=== PATIENT | female | born 1985 | race Caucasian/White ===

== ENCOUNTER 2016-09-23 11:11 | Emergency (ER) | payer BC ==
[2016-09-23 11:26] VITALS: BP 140/85; PULSE 69; RESP 16; TEMP 98.7
[2016-09-23 11:48] LABS: Appearance,Urine Clear (Clear); Bacteria,Urine Rare /hpf; Bilirubin,Urine Negative (Negative); Glucose,Urine (UA) Negative (Negative); Ketones,Urine Negative (Negative); Leukocyte Esterase,Urine Negative (Negative); Nitrite,Urine Negative (Negative); PH, Urine 7.5 (5.0-8.0); Particle Count 1653; Protein,Urine Negative (Negative); RBC,Urine 1 /hpf (0-5); Specific Gravity,Urine 1.004 (1.001-1.035); Squamous Epithelial Cell,Urine 2 /hpf (0-4); UA Billing (MACRO vs. MICRO) MICRO; Urobilinogen,Urine <2.0 mg/dL (<2.0); WBC,Urine 2 /hpf (0-5)
--- NOTE | 2016-09-23 12:04 | ED ---
General Adult HPI - General Chief complaint: Vaginal Bleeding Stated complaint: POSS MISCARRAGE, APX 3 WEEKS Time Seen by Provider: 09/23/16 11:25 Source: patient, RN notes reviewed, old records reviewed Mode of arrival: ambulatory Limitations: no limitations - History of Present Illness Initial comments: This is a 31-year-old female ER for evaluation of vaginal bleeding. Patient states she is currently active, sexually active and trying to get . She is a and is unsure at this time if she is or not. Patient states she had a 11 day early., She is not lightheaded dizzy or weak. Bleeding Is not copious. Also complaining of occasional diffuse abdominal, extremity cramping. She also has extended increasing interpregnancy cramping. Patient denies other complaints, she called her OB control who told her to come the emergency today for evaluation. Patient denies abdominal pain. No dysuria. No nausea vomiting - Related Data Home Medications Medication Instructions Recorded Confirmed Vit No.124/Iron/FA 1 tab PO DAILY 01/16/15 02/17/15 [ Vitamin Tablet] Previous Rx's Medication Instructions Recorded Acetaminophen-Codeine 300-30mg 1 - 2 tab PO Q4H PRN #30 tablet 03/18/14 [Tylenol w/codeine #3] Allergies Allergy/AdvReac Type Severity Reaction Status Date / Time No Known Allergies Allergy Verified 09/23/16 11:26 Review of Systems ROS Statement: Those systems with pertinent positive or pertinent negative responses have been documented in the HPI. ROS Other: All systems not noted in ROS Statement are negative. Past Medical History Past Medical History: No Reported History Additional Past Medical History / Comment(s): MISSED AB- DENIES ANY BLEEDING OR SPOTTING History of Any Multi-Drug Resistant Organisms: None Reported Past Surgical History: No Surgical Hx Reported Additional Past Surgical History / Comment(s): RIGHT SHOULDER, RIGHT KNEE ARTHROSCOPY Past Anesthesia/Blood Transfusion Reactions: Motion Sickness, Postoperative Nausea & Vomiting (PONV) Past Psychological History: No Psychological Hx Reported Smoking Status: Never smoker Past Alcohol Use History: Occasional Past Drug Use History: None Reported General Exam Limitations: no limitations General appearance: alert, in no apparent distress Head exam: Present: atraumatic, normocephalic, normal inspection Eye exam: Present: normal appearance, PERRL, EOMI. Absent: scleral icterus, conjunctival injection, periorbital swelling ENT exam: Present: normal exam, mucous membranes moist Neck exam: Present: normal inspection. Absent: tenderness, meningismus, lymphadenopathy Respiratory exam: Present: normal lung sounds bilaterally. Absent: respiratory distress, wheezes, rales, rhonchi, stridor Cardiovascular Exam: Present: regular rate, normal rhythm, normal heart sounds. Absent: systolic murmur, diastolic murmur, rubs, gallop, clicks GI/Abdominal exam: Present: soft, normal bowel sounds. Absent: distended, tenderness, guarding, rebound, rigid Extremities exam: Present: normal inspection, full ROM, normal capillary refill. Absent: tenderness, pedal edema, joint swelling, calf tenderness Back exam: Present: normal inspection Neurological exam: Present: alert, oriented X3, CN II-XII intact Psychiatric exam: Present: normal affect, normal mood Skin exam: Present: warm, dry, intact, normal color. Absent: rash Course Vital Signs 09/23/16 11:19 Temperature 98.7 F Pulse Rate 69 Respiratory 16 Rate Blood Pressure 140/85 O2 Sat by Pulse 100 Oximetry Medical Decision Making - Medical Decision Making 31 female here for evaluation of possible because of cramping. Laboratory is normal x-rays are negative urine is negative no infection, negative . - Lab Data Lab Results 09/23/16 09/23/16 Range/Units 11:30 11:30 Urine Color Light Yellow Urine Appearance Clear (Clear) Urine pH 7.5 (5.0-8.0) Ur Specific [place]e 1.004 (1.001-1.035) Urine Protein Negative (Negative) Urine Glucose (UA) Negative (Negative) Urine Ketones Negative (Negative) Urine Blood Moderate H (Negative) Urine Nitrite Negative (Negative) Urine Bilirubin Negative (Negative) Urine Urobilinogen <2.0 (<2.0) mg/dL Ur Leukocyte Esterase Negative (Negative) Urine RBC 1 (0-5) /hpf Urine WBC 2 (0-5) /hpf Ur Squamous Epith Cells 2 (0-4) /hpf Urine Bacteria Rare H (None) /hpf Urine HCG, Qual Not Detected (Not Detectd) Disposition Clinical Impression: Dysfunctional uterine bleeding Disposition: HOME SELF-CARE Condition: Good Instructions: Dysfunctional Uterine Bleeding (ED) Referrals: Theodore Love MD [Primary Care Provider] - 1-2 days
[2016-09-23 12:31] LABS: Basophils # (A) 0.1 k/uL (0-0.2); Basophils % (A) 1 %; CH 31.8; CHCM 33.3; Eosinophils # (A) 0.1 k/uL (0-0.7); Eosinophils % (A) 3 %; HCT 42.1 % (34.0-46.0); HDW 2.26; HGB 13.9 gm/dL (11.4-16.0); Luc # (Auto) 0.09; Luc % (Auto) 2; Lymphocytes # (A) 1.7 k/uL (1.0-4.8); Lymphocytes % (A) 32 %; MCH 31.7 pg (25.0-35.0); MCV 95.9 fL (80.0-100.0); Mean Platelet Volume 7.6; Monocytes # (A) 0.2 k/uL (0-1.0); Monocytes % (A) 4 %; Neutrophils # (A) 3.2 k/uL (1.3-7.7); Neutrophils % (A) 59 %; RBC 4.39 m/uL (3.80-5.40); RDW 12.8 % (11.5-15.5); WBC 5.3 k/uL (3.8-10.6)
[2016-09-23 12:40] LABS: HCG,Qualitative Serum Not Detected
[2016-09-23 12:47] LABS: ALT 34 U/L (9-52); AST 24 U/L (14-36); Alkaline Phosphatase 55 U/L (38-126); Anion Gap 9 mmol/L; Blood Urea Nitrogen 15 mg/dL (7-17); Carbon Dioxide 24 mmol/L (22-30); Chloride 107 mmol/L (98-107); Glucose 94 mg/dL (74-99); Magnesium 1.8 mg/dL (1.6-2.3); Non-African American GFR(MDRD) >60 (>60 ml/min/1.73 sqM); Phosphorous 3.4 mg/dL (2.5-4.5); Potassium 4.4 mmol/L (3.5-5.1); Sodium 140 mmol/L (137-145); Total Bilirubin 0.8 mg/dL (0.2-1.3); Total Protein 7.4 g/dL (6.3-8.2)
== END 2016-09-23 13:04 | disposition home or self-care (01) ==
LOC: EC 11:11
DX: N93.8 Other specified abnormal uterine and vaginal bleeding (principal); R10.84 Generalized abdominal pain; Z32.02 Encounter for pregnancy test, result negative
CPT/HCPCS: 36415; 80053; 81001; 81025; 83735; 84100; 84703; 85025; 86900; 86901; 87086; 99284

== ENCOUNTER → 2019-01-04 | Outpatient (CLI) | payer BC ==
--- NOTE | 2019-01-04 22:40 | MR ---
EXAMINATION TYPE: MR knee RT wo con DATE OF EXAM: 01/04/2019 COMPARISON: NONE HISTORY: Internal derangement of right knee, volleyball injury 4-5 weeks ago with pain. TECHNIQUE: Multiplanar, multisequence images of the knee is performed without IV contrast. FINDINGS: MEDIAL MENISCUS: Anterior and posterior horns are intact without tear. LATERAL MENISCUS: Anterior and posterior horns are intact without tear. CRUCIATE LIGAMENTS: The anterior and posterior cruciate ligaments are intact and unremarkable. COLLATERAL LIGAMENTS: The medial collateral ligament and lateral collateral ligament complex are inta ct and unremarkable. EXTENSOR MECHANISM: Visualized quadriceps and patellar tendons are intact. EFFUSION: There is small to moderate size suprapatellar joint effusion. POPLITEAL CYST: No popliteal/randhawa cyst. TRICOMPARTMENT SPACES: Mild to moderate narrowing patellofemoral compartment. No significant spurring . CARTILAGE: Some chondromalacia patella with thinning of articular cartilage along the posterior molina lar pole. BONE MARROW SIGNAL: Area of heterogeneous increased T2 signal involving the anterior central aspect o f the distal femoral epiphysis coronal image 11 and axial image 15. OTHER: No additional significant abnormality is appreciated. IMPRESSION: 1. No meniscal or ligamentous tear is seen. 2. Focal osseous contusion and/or bone marrow edema involving the anterior central aspect of the dist al femoral meta-epiphysis 3. Qaaen-sm-ebhjetyp sized suprapatellar joint effusion.
== END | disposition home or self-care (01) ==
LOC: RADMRIMAIN 16:58
PROVIDERS: ATTEND Family Medicine
DX: M25.461 Effusion, right knee (principal)

== ENCOUNTER 2019-02-18 10:13 | Emergency (ER) | payer BC ==
[2019-02-18 10:18] VITALS: RESP 16; TEMP 98
--- NOTE | 2019-02-18 11:16 | ED ---
Chest Pain HPI - General Chief Complaint: Chest Pain Stated Complaint: chest pain Time Seen by Provider: 02/18/19 10:25 Source: patient, RN notes reviewed Mode of arrival: wheelchair Limitations: no limitations - History of Present Illness Initial Comments: This is a 33-year-old female with a benign past medical history and no family history of heart or lung disease at early age who states her last one half to 2 weeks she's been having intermittent episodes of upper and mid sternal chest discomfort described as sometimes burning sometimes tight. He denies any fevers chills nausea vomiting but she has had some sweats. She recently has been diagnosed with thyroid disorder started on thyroid medication. She was noted recently have elevated blood pressure racing heart. He has no history again of any heart or lung disease no reflux she is a teacher in a girls tennis coach. She is very athletic and does work out a lot. She points to the midsternal area as the area pain right now she states is about 1/10 severity. Sometimes it goes up to 3-4. No other modifying factors she currently is on her menstrual period and denies any chance of . MD Complaint: chest pain - Related Data Home Medications Medication Instructions Recorded Confirmed Pnv,Calcium 72/Iron/Folic Acid 1 tab PO HS 09/23/16 02/18/19 [Pnv Plus Multivit Tab] Levothyroxine Sodium [Synthroid] 50 mcg PO DAILY 02/18/19 02/18/19 Allergies Allergy/AdvReac Type Severity Reaction Status Date / Time No Known Allergies Allergy Verified 02/18/19 10:37 Review of Systems ROS Statement: Those systems with pertinent positive or pertinent negative responses have been documented in the HPI. ROS Other: All systems not noted in ROS Statement are negative. EKG Findings - EKG Results: EKG: interpreted by ERMD, sinus rhythm, normal axis, normal QRS, normal ST/T, no acute changes (Normal sinus rhythm of 70. Interval 156 QRS duration 80 QT since QTC 398/429 this is a normal-appearing EKG) Past Medical History Past Medical History: No Reported History Additional Past Medical History / Comment(s): MISSED AB- DENIES ANY BLEEDING OR SPOTTING History of Any Multi-Drug Resistant Organisms: None Reported Past Surgical History: No Surgical Hx Reported Additional Past Surgical History / Comment(s): RIGHT SHOULDER, RIGHT KNEE ARTHROSCOPY Past Anesthesia/Blood Transfusion Reactions: Motion Sickness, Postoperative Nausea & Vomiting (PONV) Past Psychological History: No Psychological Hx Reported Smoking Status: Never smoker Past Alcohol Use History: Occasional Past Drug Use History: None Reported General Exam - General Exam Comments Initial Comments: This is a well-developed well-nourished awake alert oriented 5 female Limitations: no limitations General appearance: alert, anxious Head exam: Present: atraumatic, normocephalic, normal inspection Eye exam: Present: normal appearance, PERRL, EOMI. Absent: scleral icterus, conjunctival injection, periorbital swelling ENT exam: Present: normal exam, mucous membranes moist Neck exam: Present: normal inspection, full ROM. Absent: tenderness, meningismus, lymphadenopathy Respiratory exam: Present: normal lung sounds bilaterally, chest wall tenderness (Tennis palpation along the left costal sternal margin no step-off or crepitation this does reproduce patient's discomfort.). Absent: respiratory distress, wheezes, rales, rhonchi, stridor Cardiovascular Exam: Present: regular rate, normal rhythm, normal heart sounds. Absent: systolic murmur, diastolic murmur, rubs, gallop, clicks GI/Abdominal exam: Present: soft, normal bowel sounds. Absent: distended, tenderness, guarding, rebound, rigid Extremities exam: Present: normal inspection, full ROM, normal capillary refill. Absent: tenderness, pedal edema, joint swelling, calf tenderness Back exam: Present: normal inspection Neurological exam: Present: alert, oriented X3, CN II-XII intact Psychiatric exam: Present: normal affect, normal mood Skin exam: Present: warm, dry, intact, normal color. Absent: rash Course Vital Signs 02/18/19 10:16 Temperature 98.0 F Pulse Rate 70 Respiratory 16 Rate Blood Pressure 137/89 O2 Sat by Pulse 97 Oximetry Chest Pain MDM - MDM I did review the imaging and report no acute findings. I did a long discussion with the patient and her regarding the findings the presentation is consistent with costochondritic etiology. It was recommended that she use nonsteroidal anti-inflammatory she does have ibuprofen at home which she will use. She did ask for referral to cardiology she does have access to cardiology had a [facility]. She will follow-up additionally her did find results of a child monitor that the patient had it did show episodes of sinus tachycardia up into the 1 20 bpm range no other abnormalities. Disposition Clinical Impression: Atypical chest pain, Chest wall syndrome, Costochondritis Disposition: HOME SELF-CARE Condition: Good Instructions (If sedation given, give patient instructions): Chest Pain (ED), Costochondritis (ED) Is patient prescribed a controlled substance at d/c from ED?: No Referrals: None,Stated [Primary Care Provider] - 1-2 days
[2019-02-18 11:19] LABS: Basophils % (A) 0 %; Eosinophils # (A) 0.1 k/uL (0-0.7); Eosinophils % (A) 1 %; HCT 42.2 % (34.0-46.0); HGB 14.5 gm/dL (11.4-16.0); Lymphocytes # (A) 1.5 k/uL (1.0-4.8); Lymphocytes % (A) 26 %; MCH 32.4 pg (25.0-35.0); MCHC 34.3 g/dL (31.0-37.0); MCV 94.4 fL (80.0-100.0); Mean Platelet Volume 7.4; Monocytes # (A) 0.3 k/uL (0-1.0); Monocytes % (A) 5 %; Neutrophils # (A) 3.8 k/uL (1.3-7.7); Neutrophils % (A) 65 %; Platelet Count 201 k/uL (150-450); RBC 4.47 m/uL (3.80-5.40); RDW 12.2 % (11.5-15.5); WBC 5.8 k/uL (3.8-10.6)
[2019-02-18 11:25] LABS: ALT 23 U/L (9-52); AST 23 U/L (14-36); African American GFR (CKD) >90 (>60 ml/min/1.73 sqM); Albumin 4.8 g/dL (3.5-5.0); Alkaline Phosphatase 46 U/L (38-126); Anion Gap 7 mmol/L; Blood Urea Nitrogen 15 mg/dL (7-17); Calcium 9.3 mg/dL (8.4-10.2); Carbon Dioxide 29 mmol/L (22-30); Chloride 105 mmol/L (98-107); Creatine Kinase 76 U/L (30-135); Glucose 74 mg/dL (74-99); Sodium 141 mmol/L (137-145); Total Bilirubin 0.6 mg/dL (0.2-1.3); Total Protein 7.8 g/dL (6.3-8.2)
[2019-02-18 11:27] LABS: D-Dimer 0.22 mg/L FEU (<0.60); INR 1.1 (<1.2); Partial Thromboplastin Time 23.5 sec (22.0-30.0); Prothrombin Time 11.3 sec (9.0-12.0)
--- NOTE | 2019-02-18 11:57 | XR ---
EXAMINATION TYPE: XR chest 2V DATE OF EXAM: 02/18/2019 COMPARISON: None HISTORY: 33-year-old female with chest pain TECHNIQUE: PA and lateral views FINDINGS: The cardiomediastinal silhouette, aorta, and pulmonary vasculature are within normal limits. Lungs an d pleural spaces are clear. IMPRESSION: No acute cardiopulmonary process.
[2019-02-18 12:19] LABS: T4, Free (Free Thyroxine) 0.84 ng/dL (0.78-2.19)
[2019-02-18 13:19] VITALS: BP 134/76; PULSE 76
== END 2019-02-18 13:17 | disposition home or self-care (01) ==
LOC: EC 10:13
DX: M94.0 Chondrocostal junction syndrome [Tietze] (principal); E07.9 Disorder of thyroid, unspecified; Z79.890 Hormone replacement therapy
CPT/HCPCS: 36415; 71046; 80053; 81025; 82550; 83690; 83735; 83880; 84439; 84443; 84484; 85025; 85379; 85610; 85730; 93005; 99285

== ENCOUNTER → 2019-04-19 | Outpatient (CLI) | payer BC ==
--- NOTE | 2019-04-20 13:00 | US ---
EXAMINATION TYPE: US thyroid st tissue head/neck DATE OF EXAM: 04/19/2019 COMPARISON: NONE CLINICAL HISTORY: 33-year-old female Savita's. E05.90 hyperthyroidism. TECHNIQUE: Multiple sonographic images of the thyroid gland are obtained. FINDINGS: GLAND SIZE: Right Lobe: 5.6 x 1.5 x 1.5 cm Overall Parenchyma: homogenous Left Lobe: 5.6 x 1.4 x 1.7 cm Overall Parenchyma: homogeneous Isthmus Thickness: .2 cm There is pronounced, diffuse glandular hyperemia. NODULES RIGHT: # of nodules measured on right: 0 LEFT: # of nodules measured on left: 0 ISTHMUS: # of nodules measured in the isthmus: 0 Bilateral neck scanned, no evidence of lymphadenopathy. IMPRESSION: Thyromegaly with diffusely hyperemic gland but with a relatively homogeneous appearance. Diffuse thyr oiditis is suggested.
== END | disposition home or self-care (01) ==
LOC: RADUSWWP 15:38
PROVIDERS: ATTEND Family Medicine
DX: E01.0 Iodine-deficiency related diffuse (endemic) goiter (principal)
CPT/HCPCS: 76536

== ENCOUNTER 2021-01-16 00:05 | Outpatient (CLI) | payer BC ==
[2021-01-16 01:01] VITALS: BP 128/67; PULSE 77; RESP 16; TEMP 96.8
--- NOTE | 2021-01-16 07:39 | P.MSEPDOC ---
Presenting Problems - Arrival Data Date of Arrival on Unit: 01/16/21 Time of Arrival on Unit: 00:06 Mode of Transport: Ambulatory - Complaint OB-Reason for Admission/Chief Complaint: Decreased Movement Comment: Patient arrives to triage with complaints of having abnormal movement. Patient states she could feel baby kicking and moving aggresively and then it decreased. Patient states she was also last seen in the office today and FHR was higher than usual. Last movement was felt by patient 15 minutes prior to arrival in triage. Medical History - Information : 4 Para: 2 Term: 0 : 0 Abortions: Spontaneous or Elective: 1 Number of Living Children: 2 - Gestational Age Gestational Age by CHAYO (wks/days): 34 Weeks and 6 Days Review of Systems - Review of Systems Constitutional: No problems Breast: No problems ENT: No problems Cardiovascular: No problems Respiratory: No problems Gastrointestinal: No problems Genitourinary: No problems Musculoskeletal: No problems Neurological: No problems Skin: No problems Vital Signs - Temperature Temperature: 96.8 F Temperature Source: Temporal Artery Scan - Pulse Right Brachial Pulse Rate: 77 Pulse Assessment Method: Automatic Cuff - Respirations Respiratory Rate: 16 Oxygen Delivery Method: Room Air O2 Sat by Pulse Oximetry: 100 - Blood Pressure Right Arm Blood Pressure: 128/67 Blood Pressure Mean: 87 Blood Pressure Source: Automatic Cuff Medical Screen Scoring - Assessment - Baby A Baseline FHR: 135 Heart Rate - NICHD Category: Category I (Normal) NST: Reactive Maternal Triage Index - Maternal Triage Index Presenting for scheduled procedure w/no complaint: No - Stat/Priority 1 Stat Priority 1: No - Urgent/Priority 2 Urgent Priority 2: Yes Provider Notified: Og Ann Provider Notified Time: 00:37 Criteria Met for Priority 2: c/o decreased movement Disposition - Disposition OB Disposition: Discharge to home Discharge Date: 01/16/21 Discharge Time: 00:40 I agree with the RN Medical Screening Exam: Yes Case reviewed; plan agreed upon as documented in EMR&OBIX.: Yes Diagnosis: RELATED CONDITIONS, UNSPECIFIED, THIRD TRIMESTER
== END 2021-01-16 00:40 ==
LOC: FBPOP 00:05
PROVIDERS: ATTEND Obstetrics & Gynecology
DX: O26.93 Pregnancy related conditions, unspecified, third trimester (principal); Z3A.34 34 weeks gestation of pregnancy
CPT/HCPCS: 59025; 99213

== ENCOUNTER 2021-02-21 09:53 | Inpatient (IN) | payer BC ==
[2021-02-20 11:17] VITALS: BMI 39.9
--- NOTE | 2021-02-21 08:56 | P.HPOB ---
History of Present Illness H&P Date: 02/21/21 Chief Complaint: Previous section This patient is a pleasant 35-year-old 3 para 1 female estimated date of confinement 02/21/2021 estimated gestational age 40 and one sevenths weeks who presents to labor and delivery for delivery. Patient a previous section for twins and initially plan was to this however her cervix was not dilated. Plan today is to check her cervix and if she still no dilation we'll proceed with repeat section. If she is dilated and unfavorable cervix then we'll proceed with induction. care has been uncomplicated. I did refer her to maternal- medicine because one of her twins did have Down syndrome and from a heart defect at age 2. Patient's cardiac echo was normal. Patient's had no other complications this . Review of Systems Genitourinary: Reports Menstruation: Reports amenorrhea Past Medical History Past Medical History: Thyroid Disorder Additional Past Medical History / Comment(s): Hashimotos. Varicose veins. Patient had a previous section for twins one of which had Down syndrome and subsequently from heart surgery as an . History of Any Multi-Drug Resistant Organisms: None Reported Past Surgical History: Section, Orthopedic Surgery Additional Past Surgical History / Comment(s): Section X1, RIGHT SHOULDER SURGERY, RIGHT KNEE ARTHROSCOPY. Past Anesthesia/Blood Transfusion Reactions: Motion Sickness, Postoperative Nausea & Vomiting (PONV) Additional Past Anesthesia/Blood Transfusion Reaction / Comment(s): "Sensitive to Anesthesia, very groggy coming out of it." Past Psychological History: No Psychological Hx Reported Smoking Status: Never smoker Past Alcohol Use History: None Reported Past Drug Use History: None Reported - Past Family History Mother Family Medical History: No Reported History Medications and Allergies Home Medications Medication Instructions Recorded Confirmed Type Pnv,Calcium 72/Iron/Folic Acid 1 tab PO HS 09/23/16 02/20/21 History [Pnv Plus Multivit Tab] Allergies Allergy/AdvReac Type Severity Reaction Status Date / Time No Known Allergies Allergy Verified 02/20/21 11:08 Exam - OBG Physical Exam Breast: both: normal (no masses) Abdomen: bowel sounds normal, no diffuse tenderness, no bruit present, no guarding noted, no hepatomegaly, no splenomegaly, no mass Vulva: both: normal Vagina: normal moisture, no discharge Cervix: no lesion, no discharge Uterus: enlarged (Fundal height 41 cm) Adnexa: both: normal Results blood work shows she is B positive, rubella immune, RPR nonreactive, hepatitis B negative, maternity 21 was normal 46 XX, group B strep was negative, cardiac echo was negative, growth ultrasounds have been normal, Assessment and Plan Assessment: This is a pleasant 35-year-old 3 para 1 female 40 and one sevenths weeks gestation with previous section. Plan is to check her cervix is not dilated we'll proceed with repeat section otherwise will proceed with induction of labor. I did discuss surgery and risks with her including risks of infection, bleeding, possible injury bowel, bladder, vessels, and/or other organs. All the patient's questions have been answered and a written consent is obtained. (1) 40 weeks gestation of Status: Acute Code(s): Z3A.40 - 40 WEEKS GESTATION OF SNOMED Code (s): 02085471 (2) Previous delivery affecting Status: Acute Code(s): O34.219 - MATERNAL CARE FOR UNSP TYPE SCAR FROM PREVIOUS DEL SNOMED Code(s): 045393448
[2021-02-22] MEDS ORDERED: CITRIC ACID-SODIUM CITRATE 15 ML CUP PO ONE (06:09)
[2021-02-22] MEDS ORDERED: LACTATED RINGERS 1,000 ML IV ONE (06:09)
[2021-02-22] MEDS ORDERED: ceFAZolin 3 GM in SODIUM CHLORIDE 0.9% 100 ML IVPB ONE (06:09)
--- NOTE | 2021-02-22 06:20 | P.PN ---
Progress Note - Text Progress Note Date: 02/22/21 Cervical exam shows cervix to be closed thick and high. After discussion with the patient will proceed with repeat section for delivery this morning.
[2021-02-22 06:35] LABS: Basophils % (A) 0 %; Eosinophils # (A) 0.1 k/uL (0-0.7); Eosinophils % (A) 1 %; HCT 36.7 % (34.0-46.0); HGB 12.3 gm/dL (11.4-16.0); Lymphocytes # (A) 1.4 k/uL (1.0-4.8); Lymphocytes % (A) 13 %; MCH 31.7 pg (25.0-35.0); MCHC 33.6 g/dL (31.0-37.0); MCV 94.4 fL (80.0-100.0); Mean Platelet Volume 8.9; Monocytes # (A) 0.5 k/uL (0-1.0); Monocytes % (A) 4 %; Neutrophils # (A) 8.5 k/uL (1.3-7.7); Neutrophils % (A) 80 %; Platelet Count 159 k/uL (150-450); RBC 3.89 m/uL (3.80-5.40); RDW 13.3 % (11.5-15.5); WBC 10.7 k/uL (3.8-10.6)
[2021-02-22] MEDS: LACTATED RINGERS 1,000 ML IV SCH ×4 (07:28→16:52)
[2021-02-22] MEDS ORDERED: OXYTOCIN 30 UNITS/500 ML NS BAG IV ONE (07:55)
[2021-02-22] MEDS ORDERED: OXYTOCIN 10 UNIT/ML 1 ML VIAL ONE (07:55)
[2021-02-22] MEDS ORDERED: KETOROLAC 15 MG/ML 1 ML VIAL ONE (07:55)
[2021-02-22] MEDS ORDERED: MORPHINE SULFATE (PF) 0.3 MG/0.3 ML SYR ONE (07:55)
[2021-02-22] MEDS ORDERED: ONDANSETRON 4 MG/2 ML VIAL ONE (07:55)
[2021-02-22] MEDS ORDERED: NALBUPHINE 10 MG/ML (1 ML AMP) ONE (07:55)
[2021-02-22] MEDS ORDERED: diphenhydrAMINE 50 MG/ML 1 ML VIAL IVP PRN ×2 (08:28→08:44)
[2021-02-22] MEDS ORDERED: ONDANSETRON 4 MG/2 ML VIAL IVP PRN ×2 (08:28→08:44)
[2021-02-22] MEDS ORDERED: NALOXONE 0.4 MG/ML 1 ML VIAL IV PRN ×2 (08:28→08:44)
[2021-02-22] MEDS ORDERED: MORPHINE SULFATE 2 MG/ML SYRINGE IVP PRN (08:28)
[2021-02-22] MEDS ORDERED: diphenhydrAMINE 25 MG CAP PO PRN (08:44)
[2021-02-22] MEDS ORDERED: ZOLPIDEM 5 MG TAB PO PRN (08:44)
[2021-02-22] MEDS ORDERED: METOCLOPRAMIDE 5 MG/ML 2 ML VIAL IVP PRN (08:44)
[2021-02-22] MEDS ORDERED: SIMETHICONE 80 MG CHEWABLE PO PRN (08:44)
[2021-02-22] MEDS ORDERED: OXYTOCIN 30 UNITS/500 ML NS 30 UNIT in SALINE 1 500ML.BAG IV SCH ×2 (08:44→09:00)
[2021-02-22] MEDS ORDERED: LANOLIN CREAM 5 GM TUBE TOPICAL PRN (08:44)
--- NOTE | 2021-02-22 08:48 | P.OP ---
Date of Procedure: 02/22/21 Preoperative Diagnosis: #1: 40 and one sevenths week intrauterine . #2: Previous section with unfavorable cervix. Postoperative Diagnosis: Same Procedure(s) Performed: Repeat low transverse section Anesthesia: spinal Surgeon: Solitario Nava Machine Wood Sander #1: Mary Miles Estimated Blood Loss (ml): 600 Pathology: other (Placenta) Condition: stable Disposition: floor Indications for Procedure: Please see dictated H&P for intimate details of this patient's admission. Brief summary is a pleasant 35-year-old 3 para 1 female estimated gestational age 40 and one sevenths weeks who presents to labor and delivery for delivery. Patient had previous section initial plan was to however she had an unfavorable cervix at plan proceed with repeat section. Patient's cervix this morning is closed and thick therefore proceed with repeat . Patient and I did discuss the surgery and risks and risks of infection, bleeding, possible injury bowel, bladder, vessels, and/or other organs. All the patient's questions been answered and a written consent obtained. Operative Findings: This is a viable female infant Apgars are 4 at 1 minute 6 at 5 minutes and 7 at 10 minutes. She grossly appeared normal however did have some respiratory concerns due to fluid and therefore was taken to special care nursery. Description of Procedure: This patient has a Crane catheter placed to straight drain. She subsequently taken to the operating room where she sat up and spinal anesthetic is administered without incident. With adequate level of anesthesia she has an abdominal prep and drape. Scalpels taken previous Pfannenstiel incision is incised. A second scalpel is taken down the fascia the fascia scored with a knife. Fascial incision extended bilaterally using the Prado scissors. Fascia is then dissected off the rectus muscles sharply. Rectus muscles are peritoneum identified and entered sharply. Peritoneal incision extended s uperior and inferior without difficulty. Bladder blade is then placed. The bladder peritoneum was taken off the lower uterine segment sharply. Scalpels and taken a low transverse uterine incision is then made. Using a hemostat I into the uterine cavity bluntly and there is loss of clear fluid. This incision is extended bluntly the 's head is then guided through the incision with fundal pressure. There is a nuchal cord 1. Mouth and nares are bulb suctioned. With more fundal pressure we then have delivery the rest this 's body. This is a viable female infant Apgars are 4, 6, and 7. Infant does have some respiratory issues secondary to fluid and therefore will be evaluated by pediatric staff at this time. After delivery of the the placenta is manually extracted intact. Uterus is externalized and uterine incision demarcated with Henderson clamps. Uterine incision then closed using 0 Vicryl running locked fashion in 2 layers. Excellent hemostasis is noted. Bladder peritoneum was then reapproximated using a 3-0 Vicryl. Uterus and tubes and ovaries appear normal for term gestation. Excess fluid is removed from the abdomen and pelvis. Uterus placed back into the abdomen. Parietal peritoneum was then closed in 0 Vicryl running fashion. Rectus muscles reapproximated in 0 Vicryl interrupted fashion. Fascial incision is closed using 0 PDS. Fascial incision is intact and hemostatic. Subcutaneous tissues and closed using a 3-0 Vicryl. Skin is and closed using galen. All counts are correct 3. There are no complications. Patient is taken to her birthing suite in satisfactory condition.
[2021-02-22] MEDS: SENNOSIDES-DOCUSATE SODIUM 1 EACH TAB PO SCH ×2 (13:27→21:36)
[2021-02-22] MEDS: KETOROLAC 15 MG/ML 1 ML VIAL IVP SCH ×2 (15:43→21:41)
[2021-02-22] MEDS: ACETAMINOPHEN TAB 500 MG TAB PO PRN (18:36)
[2021-02-22 21:39] VITALS: RESP 16
[2021-02-23] MEDS: ACETAMINOPHEN TAB 500 MG TAB PO PRN ×3 (02:06→17:54)
[2021-02-23] MEDS: LACTATED RINGERS 1,000 ML IV SCH ×2 (02:26)
--- NOTE | 2021-02-23 06:19 | P.PNOBGPC ---
Subjective - Subjective Patient reports: Reports appetite normal, Reports voiding normally, Reports pain well controlled, Reports ambulating normally [place]: doing well Objective - Vital Signs Latest vital signs: Vital Signs Temp Pulse Resp BP Pulse Ox 02/23/21 04:00 97.9 F 58 L 16 130/80 100 02/23/21 00:00 97.7 F 56 L 16 141/71 100 02/22/21 20:00 97.7 F 50 L 16 129/71 100 02/22/21 16:00 97.8 F 50 L 18 126/68 100 02/22/21 15:00 18 02/22/21 12:45 18 02/22/21 12:00 97.8 F 60 19 126/73 98 02/22/21 11:28 18 02/22/21 10:45 98.5 F 61 16 126/80 98 02/22/21 10:15 97.5 F L 61 17 133/63 97 02/22/21 09:45 97.8 F 55 L 16 125/72 98 02/22/21 09:30 97.8 F 55 L 16 123/66 98 02/22/21 09:28 97 02/22/21 09:15 97.1 F L 68 15 123/66 97 02/22/21 09:00 97.8 F 62 16 140/73 100 02/22/21 08:45 98.5 F 66 17 104/58 100 02/22/21 08:28 98.5 F 73 16 102/57 100 Intake and Output 02/22/21 02/22/21 02/23/21 14:59 22:59 06:59 Output Total 3723 438 3544 Balance -1625 -850 -1050 Output: Urine 500 1050 Uretheral (Crane) 250 Emesis 200 350 Estimated Blood Loss 1425 Other: Voiding Method Indwelling Catheter Indwelling Catheter # Voids 0 1 # Emeses 2 1 - Exam Lungs: bilateral: normal Chest: Normal S1, Normal S2 Extremities: Present: normal Abdomen: Present: normal appearance, soft. Absent: distention, tenderness Incision: Present: normal, dry, intact Uterus: Present: normal, firm - Labs Labs: Abnormal Lab Results - Last 24 Hours (Table) 02/22/21 Range/Units 06:22 WBC 10.7 H (3.8-10.6) k/uL Neutrophils # 8.5 H (1.3-7.7) k/uL Assessment and Plan Assessment: Postoperative day #1. Patient is resting without new complaints. Vital signs are stable and she is afebrile. Uterus is firm, nontender, and her incision is intact and dry. CBC is pending at time of this dictation. Patient is urinating without difficulty and tolerating regular diet. Plan today is to allow the patient to shower, regular diet, and continue routine postoperative care. (1) 40 weeks gestation of Current Visit: No Status: Acute Code(s): Z3A.40 - 40 WEEKS GESTATION OF SNOMED Code(s): 11165259 (2) Previous delivery affecting Current Visit: No Status: Acute Code(s): O34.219 - MATERNAL CARE FOR UNSP TYPE SCAR FROM PREVIOUS DEL SNOMED Code(s): 248535723
[2021-02-23] MEDS: KETOROLAC 15 MG/ML 1 ML VIAL IVP SCH (06:24)
[2021-02-23] MEDS: SENNOSIDES-DOCUSATE SODIUM 1 EACH TAB PO SCH ×2 (08:29→19:55)
[2021-02-23 09:17] LABS: Basophils % (A) 0 %; Eosinophils % (A) 0 %; HCT 33.5 % (34.0-46.0); HGB 11.2 gm/dL (11.4-16.0); Lymphocytes # (A) 0.8 k/uL (1.0-4.8); Lymphocytes % (A) 9 %; MCH 32.2 pg (25.0-35.0); MCHC 33.5 g/dL (31.0-37.0); MCV 96.1 fL (80.0-100.0); Mean Platelet Volume 9.9; Monocytes # (A) 0.4 k/uL (0-1.0); Monocytes % (A) 4 %; Neutrophils # (A) 8.4 k/uL (1.3-7.7); Neutrophils % (A) 86 %; Platelet Count 140 k/uL (150-450); RBC 3.49 m/uL (3.80-5.40); RDW 13.4 % (11.5-15.5); WBC 9.8 k/uL (3.8-10.6)
--- NOTE | 2021-02-23 11:28 | P.PN ---
Progress Note - Text 02/23/21 645am 35-year-old female status post with spinal Duramorph. Patient seen and evaluated for postop pain control, patient has a VAS of 1, she did have complains of nausea and dizziness yesterday, feels better today
[2021-02-23] MEDS: IBUPROFEN 600 MG TAB PO PRN ×2 (14:26→19:55)
[2021-02-24] MEDS: IBUPROFEN 600 MG TAB PO PRN ×2 (02:38→08:23)
[2021-02-24] MEDS: ACETAMINOPHEN TAB 500 MG TAB PO PRN ×2 (06:17)
[2021-02-24] MEDS: SENNOSIDES-DOCUSATE SODIUM 1 EACH TAB PO SCH (08:21)
[2021-02-24 08:50] VITALS: BP 135/90; PULSE 64; TEMP 98
--- NOTE | 2021-02-24 11:13 | P.DS ---
Providers Date of admission: 02/22/21 05:55 Expected date of discharge: 02/24/21 Attending physician: Solitario Nava Primary care physician: Stated None Hospital Course: This is a 35-year-old female 3 para 1 at 40 and one sevenths weeks who presented for repeat section. She underwent a repeat low transverse section on 02/22/2021 and delivered a viable female with scores of 4 at 1 minute 6 at 5 minutes and 7 at 10 minutes and weight of 9 lbs. 1 oz. Please see history and physical and dictated operative report for details of patient's admission. Postoperatively she has done well. She is passing flatus and bowel movement. Her pain is fairly well controlled. She is pumping her breast milk. Lochia is decreasing. Vital signs are stable. Abdomen is soft with positive bowel sounds 4. Incision is clean dry and intact with galen in place. Extremities show negative Homans. Impression is status post repeat low transverse section postoperative day #2. Plan is to discharge home today as long as baby is able to go home. [place] will be removed and Steri-Strips placed prior to discharge. Routine postoperative instructions are given. Prescriptions have been sent in by Dr. Nava. She is advised to follow up with Dr. Nava in approximately 1 week. She is advised to call the office if she has any further questions or concerns prior to her appointment times. Procedures: Repeat low transverse section for delivery of a viable female infant on 02/22/2021 Patient Condition at Discharge: Stable Plan - Discharge Summary Discharge Rx Participant: Yes New Discharge Prescriptions: New Ibuprofen [Motrin] 600 mg PO Q6H PRN #40 tab PRN Reason: Pain oxyCODONE HCL [OxyIR] 5 mg PO Q4HR PRN #18 tab PRN Reason: Pain No Action Pnv,Calcium 72/Iron/Folic Acid [Pnv Plus Multivit Tab] 1 tab PO HS Discharge Medication List Pnv,Calcium 72/Iron/Folic Acid [Pnv Plus Multivit Tab] 1 tab PO HS 09/23/16 [History] Ibuprofen [Motrin] 600 mg PO Q6H PRN #40 tab 02/23/21 [Rx] oxyCODONE HCL [OxyIR] 5 mg PO Q4HR PRN #18 tab 02/23/21 [Rx] Follow up Appointment(s)/Referral(s): Solitario Nava MD [STAFF PHYSICIAN] - 04/04/21 3:00 pm (Please see me for a postop appointment on 03-01-2021 @ 1:30 p.m.) Patient Instructions/Handouts: (DC) Activity/Diet/Wound Care/Special Instructions: No heavy lifting or strenuous activity for 6 weeks. No intercourse or anything per vagina for 6 weeks. Please call if any fever, chills, excessive vaginal bleeding, and/or abdominal pain. Discharge Disposition: HOME SELF-CARE
== END 2021-02-24 12:25 | disposition home or self-care (01) | DRG 788 ==
LOC: 4FBP 02-22 05:55
PROVIDERS: ADMIT Obstetrics & Gynecology; ATTEND Obstetrics & Gynecology
PROC: 10D00Z1 Extraction of Products of Conception, Low, Open Approach (ICD-10-PCS; principal; 2021-02-22 08:00)
DX: O34.211 Maternal care for low transverse scar from previous cesarean delivery (principal); Z37.0 Single live birth; Z3A.40 40 weeks gestation of pregnancy; E06.3 Autoimmune thyroiditis; O99.284 Endocrine, nutritional and metabolic diseases complicating childbirth
CPT/HCPCS: 85025; 86850; 86900; 86901; 88307

== ENCOUNTER 2021-02-28 20:40 | Emergency (ER) | payer BC ==
[2021-02-28 20:54] VITALS: BP 153/93; PULSE 63; RESP 20; TEMP 98.9
--- NOTE | 2021-02-28 22:04 | US ---
EXAMINATION TYPE: US venous doppler duplex LE RT DATE OF EXAM: 02/28/2021 9:49 PM COMPARISON: NONE CLINICAL HISTORY: pain. 1 week ago. pain right knee and palpable lumps SIDE PERFORMED: Right TECHNIQUE: The lower extremity deep venous system is examined utilizing real time linear array sonog polo with graded compression, doppler sonography and color-flow sonography. VESSELS IMAGED: Common Femoral Vein Deep Femoral Vein Greater Saphenous Vein * Femoral Vein Popliteal Vein Small Saphenous Vein * Proximal Calf Veins (* superficial vessels) Right Leg: Negative for DVT. Positive for superficial thrombophlebitis right lateral knee at area of redness Left Leg: IMPRESSION: No evidence of deep vein thrombosis in the right leg. There is some superficial subcutane ous vein thrombosis in the lateral knee.
--- NOTE | 2021-02-28 22:55 | ED ---
General Adult HPI - General Chief complaint: Extremity Problem,Nontraumatic Stated complaint: R leg swelling/pain Time Seen by Provider: 02/28/21 22:30 Source: patient Mode of arrival: ambulatory Limitations: no limitations - History of Present Illness Initial comments: 35-year-old female presents to the emergency room for a chief complaint of redness to the lateral aspect of the right knee. Patient had a 1 week ago. Patient states she is afraid she has a blood clot in her leg. States it is painful to touch and red. States this is limited to the lateral aspect of the knee. States it is where she had a bulging vein during . Denies calf pain.Patient has no other complaints at this time including shortness of breath, chest pain, abdominal pain, nausea or vomiting, headache, or visual changes. - Related Data Home Medications Medication Instructions Recorded Confirmed Pnv,Calcium 72/Iron/Folic Acid 1 tab PO HS 09/23/16 02/22/21 [Pnv Plus Multivit Tab] Previous Rx's Medication Instructions Recorded Ibuprofen [Motrin] 600 mg PO Q6H PRN #40 tab 02/23/21 oxyCODONE HCL [OxyIR] 5 mg PO Q4HR PRN #18 tab 02/23/21 Allergies Allergy/AdvReac Type Severity Reaction Status Date / Time No Known Allergies Allergy Verified 02/28/21 20:51 Review of Systems ROS Statement: Those systems with pertinent positive or pertinent negative responses have been documented in the HPI. ROS Other: All systems not noted in ROS Statement are negative. Past Medical History Past Medical History: Thyroid Disorder Additional Past Medical History / Comment(s): Hashimotos. Varicose veins. Patient had a previous section for twins one of which had Down syndrome and subsequently from heart surgery as an infant. History of Any Multi-Drug Resistant Organisms: None Reported Past Surgical History: Section, Orthopedic Surgery Additional Past Surgical History / Comment(s): Section X1, RIGHT SHOULDER SURGERY, RIGHT KNEE ARTHROSCOPY. lasix eye surgery- 2019 Past Anesthesia/Blood Transfusion Reactions: Motion Sickness, Postoperative Nausea & Vomiting (PONV) Additional Past Anesthesia/Blood Transfusion Reaction / Comment(s): "Sensitive to Anesthesia, very groggy coming out of it." Past Psychological History: No Psychological Hx Reported Smoking Status: Never smoker Past Alcohol Use History: None Reported Past Drug Use History: None Reported - Past Family History Mother Family Medical History: No Reported History General Exam Limitations: no limitations General appearance: alert, in no apparent distress Head exam: Present: atraumatic Eye exam: Present: normal appearance, PERRL, EOMI. Absent: scleral icterus, conjunctival injection ENT exam: Present: normal exam, mucous membranes moist Neck exam: Present: normal inspection, full ROM. Absent: tenderness Respiratory exam: Present: normal lung sounds bilaterally. Absent: respiratory distress, wheezes Cardiovascular Exam: Present: regular rate, normal rhythm, normal heart sounds Extremities exam: Present: full ROM (Full range of motion of the right leg), normal capillary refill, other (Small area of erythema and tenderness noted localized to the lateral aspect of the right knee measuring about 4 cm x 3 cm.). Absent: joint swelling (No swelling of the right lower leg), calf tenderness Course Vital Signs 02/28/21 20:51 Temperature 98.9 F Pulse Rate 63 Respiratory 20 Rate Blood Pressure 153/93 O2 Sat by Pulse 99 Oximetry Medical Decision Making - Medical Decision Making Ultrasound reveals no evidence of DVT. There is some superficial subcutaneous vein thrombosis in the lateral knee. Patient was counseled on this and was told to continue NSAIDs that she is doing at home and apply warm compresses. She has an appointment with her LIVING SKILLS ADVISOR tomorrow and will follow up then. She will return here for any worsening symptoms. Disposition Clinical Impression: Superficial thrombophlebitis Disposition: HOME SELF-CARE Condition: Good Instructions (If sedation given, give patient instructions): Superficial Thrombophlebitis (ED) Additional Instructions: Continue to take Motrin every 6 hours. Apply warm compresses to the area. Follow-up with your LIVING SKILLS ADVISOR. Return to the emergency room for any worsening symptoms. Is patient prescribed a controlled substance at d/c from ED?: No Referrals: Solitario Nava MD [Primary Care Provider] - 1-2 days Time of Disposition: 22:54
== END 2021-02-28 22:57 | disposition home or self-care (01) ==
LOC: EC 20:40
DX: I80.3 Phlebitis and thrombophlebitis of lower extremities, unspecified (principal); Z79.1 Long term (current) use of non-steroidal anti-inflammatories (NSAID)
CPT/HCPCS: 99283

== ENCOUNTER 2021-03-03 17:11 | Emergency (ER) | payer BC ==
[2021-03-03 17:25] VITALS: BP 155/93; TEMP 98.2
--- NOTE | 2021-03-03 19:49 | US ---
EXAMINATION TYPE: US venous doppler duplex LE RT DATE OF EXAM: 03/03/2021 7:03 PM COMPARISON: US 2020 CLINICAL HISTORY: lump right leg; recent /. Patient has superficial vein thrombosis in the lateral knee that was found 2 days ago with ultrasound, patient returned today with pain and palpable lumps right groin SIDE PERFORMED: Right TECHNIQUE: The lower extremity deep venous system is examined utilizing real time linear array sonog polo with graded compression, doppler sonography and color-flow sonography. VESSELS IMAGED: Common Femoral Vein Deep Femoral Vein Greater Saphenous Vein * Femoral Vein Popliteal Vein Small Saphenous Vein * Proximal Calf Veins (* superficial vessels) Right Leg: Appears negative for DVT Recheck for superficial vein thrombosis right lateral knee Thrombus seen within superficial vein in right groin at patient's new palpable painful area IMPRESSION: There is some superficial vein thrombosis. No evidence of deep vein thrombosis.
[2021-03-03] MEDS ORDERED: IBUPROFEN 600 MG TAB PO STA (19:50)
--- NOTE | 2021-03-03 20:05 | ED ---
Recheck HPI - General Chief Complaint: Recheck/Abnormal Lab/Rx Stated Complaint: revisit - poss blood clot, rt leg Time Seen by Provider: 03/03/21 17:40 Source: patient Mode of arrival: ambulatory Limitations: no limitations - History of Present Illness Initial Comments: 35-year-old female patient who is 1 week after delivery presents to the emergency department today for evaluation of a lump to the right groin. Patient states she was seen here a couple days ago and diagnosed with superficial thrombophlebitis around the right knee. States that she felt the lump in her groin today and is concerned it may be a blood clot. Denies any increased swelling to the right leg. Denies any significant pain to the area. Denies fever or chills. Denies history of DVT. - Related Data Home Medications Medication Instructions Recorded Confirmed Pnv,Calcium 72/Iron/Folic Acid 1 tab PO HS 09/23/16 02/22/21 [Pnv Plus Multivit Tab] Previous Rx's Medication Instructions Recorded Ibuprofen [Motrin] 600 mg PO Q6H PRN #40 tab 02/23/21 oxyCODONE HCL [OxyIR] 5 mg PO Q4HR PRN #18 tab 02/23/21 Allergies Allergy/AdvReac Type Severity Reaction Status Date / Time No Known Allergies Allergy Verified 03/03/21 17:25 Review of Systems ROS Statement: Those systems with pertinent positive or pertinent negative responses have been documented in the HPI. ROS Other: All systems not noted in ROS Statement are negative. Past Medical History Past Medical History: Thyroid Disorder Additional Past Medical History / Comment(s): Hashimotos. Varicose veins. Patient had a previous section for twins one of which had Down syndrome and subsequently from heart surgery as an . History of Any Multi-Drug Resistant Organisms: None Reported Past Surgical History: Section, Orthopedic Surgery Additional Past Surgical History / Comment(s): Section X1, RIGHT SHOULDER SURGERY, RIGHT KNEE ARTHROSCOPY. lasix eye surgery- 2019 Past Anesthesia/Blood Transfusion Reactions: Motion Sickness, Postoperative Nausea & Vomiting (PONV) Additional Past Anesthesia/Blood Transfusion Reaction / Comment(s): "Sensitive to Anesthesia, very groggy coming out of it." Past Psychological History: No Psychological Hx Reported Smoking Status: Never smoker Past Alcohol Use History: None Reported Past Drug Use History: None Reported - Past Family History Mother Family Medical History: No Reported History General Exam Limitations: no limitations General appearance: alert, in no apparent distress, other (This is a well- developed, well-nourished adult female patient in no acute distress. Vital signs upon presentation are temperature 98.2F, pulse 58, respirations 16, blood pressure 155/93, pulse ox 98% on room air.) Eye exam: Present: normal appearance, PERRL, EOMI. Absent: scleral icterus, conjunctival injection, periorbital swelling ENT exam: Present: normal exam, normal oropharynx, mucous membranes moist Respiratory exam: Present: normal lung sounds bilaterally. Absent: respiratory distress, wheezes, rales, rhonchi, stridor Cardiovascular Exam: Present: regular rate, normal rhythm, normal heart sounds. Absent: systolic murmur, diastolic murmur, rubs, gallop, clicks Extremities exam: Present: full ROM, normal capillary refill, other (There is area of induration noted to the right proximal thigh. No erythema. No tenderness. No swelling to the lower extremities.). Absent: tenderness, pedal edema, joint swelling, calf tenderness Neurological exam: Present: alert, oriented X3, CN II-XII intact Psychiatric exam: Present: normal affect, normal mood Skin exam: Present: warm, dry, intact, normal color. Absent: rash Course Vital Signs 03/03/21 03/03/21 17:22 20:41 Temperature 98.2 F Pulse Rate 58 L 68 Respiratory 16 20 Rate Blood Pressure 155/93 O2 Sat by Pulse 98 Oximetry Medical Decision Making - Medical Decision Making 35-year-old female patient presents to the emergency department today for evaluation of a lump to the right groin. Physical examination did reveal an area of induration to the right proximal anterior thigh. No surrounding erythema. Nontender to palpation. No leg swelling. She was diagnosed with superficial thrombophlebitis a couple of days ago. Ultrasound was repeated, no evidence for DVT. This area appears to be superficial thrombophlebitis as well. I did discuss findings and results with the patient. She is instructed to apply warm compresses to both areas. Take ibuprofen as directed. She is instructed to follow-up with her primary care physician and DISABILITY SERVICES COORDINATOR for further evaluation and monitoring. Instructed to return immediately should she develop any other areas of concern. She verbalizes understanding and agrees with this plan. Case discussed with my attending Dr. Arizmendi. - Radiology Data Radiology results: report reviewed, image reviewed Ultrasound of the right lower extremity is obtained. Report was reviewed in its entirety. Impression by Dr. Muse shows negative for DVT though there is some superficial vein thrombosis. Disposition Clinical Impression: Superficial thrombophlebitis Disposition: HOME SELF-CARE Condition: Good Instructions (If sedation given, give patient instructions): Superficial Thrombophlebitis (ED) Additional Instructions: Warm compresses over the area. Continue ibuprofen for anti-inflammatory, 3 times a day with meals. Follow up with her primary care physician or DISABILITY SERVICES COORDINATOR for further evaluation of the areas. Return to the emergency department immediately for any new, worsening, or concerning symptoms. Is patient prescribed a controlled substance at d/c from ED?: No Referrals: Solitario Nava MD [Primary Care Provider] - 1-2 days Time of Disposition: 20:04
[2021-03-03 20:41] VITALS: PULSE 68; RESP 20
== END 2021-03-03 20:41 | disposition home or self-care (01) ==
LOC: EC 17:11
DX: I80.01 Phlebitis and thrombophlebitis of superficial vessels of right lower extremity (principal)
CPT/HCPCS: 99283

== ENCOUNTER 2021-03-07 08:35 | Emergency (ER) | payer BC ==
--- NOTE | 2021-03-07 09:09 | ED ---
General Adult HPI - General Chief complaint: Extremity Injury, Lower Stated complaint: possible blood clot Time Seen by Provider: 03/07/21 08:53 Source: patient Mode of arrival: ambulatory Limitations: no limitations - History of Present Illness Initial comments: 35-year-old female with a past medical history of Savita's presents to the emergency room for a chief complaint of possible blood clot. Patient reports she was diagnosed with 2 superficial blood clots one on the lateral knee and one in the groin. Patient states she has been doing warm compresses and taking NSAIDs. However last night she noticed the one near her groin was maybe worsening. This concerned her so she wanted to be evaluated. Patient has followed up with her AUXILIARY POWER EQUIPMENT OPERATOR after each ER visit and they were agreeable to treatment plan thus far. Patient has no other complaints at this time including shortness of breath, chest pain, abdominal pain, nausea or vomiting, headache, or visual changes. - Related Data Home Medications Medication Instructions Recorded Confirmed Pnv,Calcium 72/Iron/Folic Acid 1 tab PO DAILY 09/23/16 03/07/21 [Pnv Plus Multivit Tab] Previous Rx's Medication Instructions Recorded Ibuprofen [Motrin] 600 mg PO Q6H PRN #40 tab 02/23/21 Allergies Allergy/AdvReac Type Severity Reaction Status Date / Time No Known Allergies Allergy Verified 03/07/21 10:57 Review of Systems ROS Statement: Those systems with pertinent positive or pertinent negative responses have been documented in the HPI. ROS Other: All systems not noted in ROS Statement are negative. Past Medical History Past Medical History: Thyroid Disorder Additional Past Medical History / Comment(s): Hashimotos. Varicose veins. Pat ient had a previous section for twins one of which had Down syndrome and subsequently from heart surgery as an infant. History of Any Multi-Drug Resistant Organisms: None Reported Past Surgical History: Section, Orthopedic Surgery Additional Past Surgical History / Comment(s): Section X1, RIGHT SHOULDER SURGERY, RIGHT KNEE ARTHROSCOPY. lasix eye surgery- 2019 Past Anesthesia/Blood Transfusion Reactions: Motion Sickness, Postoperative Nausea & Vomiting (PONV) Additional Past Anesthesia/Blood Transfusion Reaction / Comment(s): "Sensitive to Anesthesia, very groggy coming out of it." Past Psychological History: No Psychological Hx Reported Smoking Status: Never smoker Past Alcohol Use History: None Reported Past Drug Use History: None Reported - Past Family History Mother Family Medical History: No Reported History General Exam Limitations: no limitations General appearance: alert, in no apparent distress Head exam: Present: atraumatic Eye exam: Present: normal appearance, PERRL, EOMI. Absent: scleral icterus, conjunctival injection ENT exam: Present: normal exam, mucous membranes moist Neck exam: Present: normal inspection, full ROM. Absent: tenderness Respiratory exam: Present: normal lung sounds bilaterally. Absent: respiratory distress, wheezes Cardiovascular Exam: Present: regular rate, normal rhythm, normal heart sounds Extremities exam: Present: normal capillary refill (Capillary refill less than 2 seconds right lower extremity, DP pulse 2+.), other (Patient has area of induration in the right groin and lateral to the right groin. Slight induration on the lateral knee. No significant edema of the right leg.) Course Vital Signs 03/07/21 03/07/21 08:47 12:51 Temperature 98.3 F 98.0 F Pulse Rate 76 67 Respiratory 18 20 Rate Blood Pressure 154/104 139/91 O2 Sat by Pulse 99 100 Oximetry Medical Decision Making - Medical Decision Making Patient does have additional superficial blood clot. I did discuss this case with Dr. Crane at this is patient's third visit. Again states that patient should continue NSAIDs and warm compresses. Stated she could start on a baby aspirin daily she wanted. At this time patient is stable for a patient follow- up. She will return for any worsening symptoms and will otherwise follow-up with her doctor. Disposition Clinical Impression: Superficial thrombosis of lower extremity Disposition: HOME SELF-CARE Condition: Good Additional Instructions: Continue warm compresses and [id number] anti-inflammatories. You could add a baby aspirin daily as well. Follow up with Dr. Nava. Return to the emergency room for any worsening symptoms. Is patient prescribed a controlled substance at d/c from ED?: No Referrals: Solitario Nava MD [STAFF PHYSICIAN] - 1-2 days Time of Disposition: 11:16
--- NOTE | 2021-03-07 10:24 | US ---
EXAMINATION TYPE: US venous doppler duplex LE RT DATE OF EXAM: 03/07/2021 10:00 AM COMPARISON: US 2020 CLINICAL HISTORY: worsening sx, induraation. Patient has history of superficial thrombophlebitis, sta adelina she now feels another superficial palpable area in her right groin SIDE PERFORMED: Right TECHNIQUE: The lower extremity deep venous system is examined utilizing real time linear array sonog polo with graded compression, doppler sonography and color-flow sonography. VESSELS IMAGED: Common Femoral Vein Deep Femoral Vein Greater Saphenous Vein * Femoral Vein Popliteal Vein Small Saphenous Vein * Proximal Calf Veins (* superficial vessels) Right Leg: Appears negative for DVT Recheck of superficial vein thrombosis right lateral knee Recheck of superficial vein thrombosis right groin Thrombus seen within superficial vein at patient's new palpable area more medial in right groin IMPRESSION: 1. There remains evidence of superficial venous thrombosis which now correlates with the area of palp able abnormality as well. 2. There is no evidence of deep venous thrombosis.
[2021-03-07 12:52] VITALS: BP 139/91; PULSE 67; RESP 20; TEMP 98
== END 2021-03-07 11:25 | disposition home or self-care (01) ==
LOC: EC 08:35
DX: I82.811 Embolism and thrombosis of superficial veins of right lower extremity (principal); E07.9 Disorder of thyroid, unspecified
CPT/HCPCS: 99283

== ENCOUNTER 2023-05-14 08:21 | Emergency (ER) | payer BC ==
[2023-05-14 08:30] VITALS: TEMP 98.4
--- NOTE | 2023-05-14 08:53 | ED ---
Chest Pain HPI - General Chief Complaint: Chest Pain Stated Complaint: chest pain Time Seen by Provider: 05/14/23 08:26 Source: patient, RN notes reviewed Mode of arrival: ambulatory Limitations: no limitations - History of Present Illness Initial Comments: This is a 37-year-old female who presents to the emergency department for chest pain. States that this started approximately 10 hours ago. This initially felt like it was occurring in a vertical sensation, going from the top of her chest to the epigastric region. However, she is unable to characterize this pain. This has been occurring intermittently. She now feels like the pain is moving horizontally across her chest. Denies any shortness of breath. She has no radiation of pain into her back or arms. Denies any personal or family history of cardiac issues. MD Complaint: chest pain - Related Data Home Medications Medication Instructions Recorded Confirmed Magnesium(Unknown Dose) 1 tab PO HS 05/14/23 05/14/23 Multivitamins, Thera [Multivitamin 1 tab PO DAILY 05/14/23 05/14/23 (formulary)] Allergies Allergy/AdvReac Type Severity Reaction Status Date / Time No Known Allergies Allergy Verified 05/14/23 10:41 Review of Systems ROS Statement: Those systems with pertinent positive or pertinent negative responses have been documented in the HPI. ROS Other: All systems not noted in ROS Statement are negative. Past Medical History Past Medical History: Thyroid Disorder Additional Past Medical History / Comment(s): Hashimotos. Varicose veins. Patient had a previous section for twins one of which had Down syndrome and subsequently from heart surgery as an . History of Any Multi-Drug Resistant Organisms: None Reported Past Surgical History: Section, Orthopedic Surgery Additional Past Surgical History / Comment(s): Section X1, RIGHT SHOULDER SURGERY, RIGHT KNEE ARTHROSCOPY. lasix eye surgery- 2019 Past Anesthesia/Blood Transfusion Reactions: Motion Sickness, Postoperative Nausea & Vomiting (PONV) Additional Past Anesthesia/Blood Transfusion Reaction / Comment(s): "Sensitive to Anesthesia, very groggy coming out of it." Past Psychological History: No Psychological Hx Reported Smoking Status: Never smoker Past Alcohol Use History: Occasional Past Drug Use History: Marijuana - Past Family History Mother Family Medical History: No Reported History General Exam Limitations: no limitations General appearance: alert, in no apparent distress Head exam: Present: atraumatic, normocephalic, normal inspection Respiratory exam: Present: normal lung sounds bilaterally. Absent: respiratory distress, wheezes, rales, rhonchi, stridor, chest wall tenderness Cardiovascular Exam: Present: regular rate, normal rhythm, normal heart sounds. Absent: systolic murmur, diastolic murmur, rubs, gallop, clicks Neurological exam: Present: alert, oriented X3, CN II-XII intact Psychiatric exam: Present: normal affect, normal mood Skin exam: Present: warm, dry, intact, normal color. Absent: rash Course Vital Signs 05/14/23 05/14/23 05/14/23 08:26 09:30 10:30 Temperature 98.4 F Pulse Rate 76 76 73 Respiratory 18 18 18 Rate Blood Pressure 123/85 130/89 129/81 O2 Sat by Pulse 99 99 99 Oximetry 05/14/23 11:13 Temperature Pulse Rate 73 Respiratory 17 Rate Blood Pressure 125/86 O2 Sat by Pulse 100 Oximetry Chest Pain MDM - [facility] This is a 37-year-old female who presents to the emergency department for chest pain. Was pt. sent in by a medical professional or institution? @ -No Did you speak to anyone other than the patient for history? @ -No Did you review nursing and triage notes? @ -Yes, and I agree, it is accurate with regards to the patient's symptoms. Were old charts reviewed? @ -No Differential Diagnosis? @ -Differential Chest Pain: Stable Angina, Unstable Angina, STEMI, NSTEMI Aortic Dissection, Pneumothorax, Musculoskeletal, Esophageal Spasm GERD, Cholecystitis, Pancreatitis, Zoster, this is not meant to be an all-inclusive list. EKG interpreted by me (3pts min.)? @ -EKG interpreted by me demonstrating the following: Sinus bradycardia. Ventricular rate 59 beats per minute, TX interval 152 ms, QRS duration 105 ms, QTC 375 ms. X-rays interpreted by me (1pt min.)? @ -Chest x-ray obtained, my interpretation identifies no localized consolidations or infiltrates. CT interpreted by me (1pt min.)? @ -Not obtained U/S interpreted by me (1pt. min.)? @ -Not obtained What testing was considered but not performed? (CT, X-rays, U/S, labs)? Why? @ -None What meds were considered but not given? Why? @ -None Did you discuss the management of the patient with other professionals? @ -No Did you reconcile home meds? @ -No Was smoking cessation discussed for >3mins.? @ -No Was critical care preformed (if so, how long)? @ -No Were there social determinants of health that impacted care today? How? (Homelessness, low income, unemployed, alcoholism, drug addiction, transportation, low edu. Level, literacy, decrease access to med. care, prison, rehab)? @ -No Was there de-escalation of care discussed even if they declined? (Discuss DNR or withdrawal of care, Hospice)? @ -No What co-morbidities impacted this encounter? (DM, HTN, Smoking, COPD, CAD, Cancer, CVA, Hep., AIDS, mental health diagnosis, sleep apnea, morbid obesity)? @ -None Was patient admitted / discharged? @ -Discharged. Lab work obtained and found to be unremarkable. Chest x-ray reveals no acute process. COVID, influenza, and RSV testing were negative. Patient did continue to feel improved while in the emergency department. Symp toms are unlikely to be cardiac related. Advised she follow up with her primary care provider for further evaluation. Undiagnosed new problem with uncertain prognosis? @ -None Drug Therapy requiring intensive monitoring for toxicity (Heparin, Nitro, Insulin, Cardizem)? @ -None Were any procedures done? @ -None Diagnosis/symptom? @ -Atypical chest pain Acute, or Chronic, or Acute on Chronic? @ -Acute Uncomplicated (without systemic symptoms) or Complicated (systemic symptoms)? @ -Uncomplicated Side effects of treatment? @ -None Exacerbation, Progression, or Severe Exacerbation] @ -Not applicable Poses a threat to life or bodily function? @ -No Return precautions reviewed in depth, the patient is instructed to return to the emergency department with any new, worsening, or concerning symptoms. Patient verbalized understanding. This case was discussed in detail with the attending ED physician, Dr. Drew. Presentation, findings, and treatment plan discussed in detail as well. Disposition Clinical Impression: Atypical chest pain Disposition: HOME SELF-CARE Instructions (If sedation given, give patient instructions): Chest Pain (ED), Noncardiac Chest Pain (ED) Additional Instructions: Return to the emergency department with any new, worsening, or concerning symptoms. Follow up with your primary care provider in 1-2 days. Is patient prescribed a controlled substance at d/c from ED?: No Referrals: None,Stated [REFERRING] - 1-2 days
--- NOTE | 2023-05-14 09:06 | XR ---
EXAMINATION TYPE: XR chest 2V DATE OF EXAM: 05/14/2023 COMPARISON: 02/18/2019 HISTORY: Chest pain TECHNIQUE: Frontal and lateral views of the chest are obtained. FINDINGS: There is no focal air space opacity. No evidence for pneumothorax. No pleural effusion. The cardiac silhouette size is within normal limits. The osseous structures are grossly intact. IMPRESSION: 1. No acute cardiopulmonary process.
[2023-05-14 09:23] LABS: Basophils % (A) 1 %; Eosinophils # (A) 0.1 k/uL (0-0.7); Eosinophils % (A) 1 %; HCT 42.5 % (34.0-46.0); HGB 14.3 gm/dL (11.4-16.0); Lymphocytes # (A) 1.4 k/uL (1.0-4.8); Lymphocytes % (A) 22 %; MCH 31.5 pg (25.0-35.0); MCHC 33.7 g/dL (31.0-37.0); MCV 93.3 fL (80.0-100.0); Mean Platelet Volume 9.1; Monocytes # (A) 0.3 k/uL (0-1.0); Monocytes % (A) 5 %; Neutrophils # (A) 4.4 k/uL (1.3-7.7); Neutrophils % (A) 69 %; Platelet Count 184 k/uL (150-450); RBC 4.55 m/uL (3.80-5.40); RDW 12.4 % (11.5-15.5); WBC 6.4 k/uL (3.8-10.6)
[2023-05-14 09:43] LABS: ALT 15 U/L (4-34); AST 22 U/L (14-36); African American GFR (CKD) >90 (>60 ml/min/1.73 sqM); Albumin 4.4 g/dL (3.5-5.0); Alkaline Phosphatase 52 U/L (38-126); Anion Gap 11 mmol/L; Blood Urea Nitrogen 17 mg/dL (7-17); Carbon Dioxide 25 mmol/L (22-30); Chloride 104 mmol/L (98-107); Glucose 59 mg/dL (74-99); Non-African American GFR(CKD) >90 (>60 ml/min/1.73 sqM); Potassium 4.4 mmol/L (3.5-5.1); Sodium 140 mmol/L (137-145); Total Bilirubin 0.9 mg/dL (0.2-1.3); Total Protein 7.3 g/dL (6.3-8.2)
[2023-05-14 09:58] LABS: INR 1.1 (<1.2); Partial Thromboplastin Time 23.7 sec (22.0-30.0); Prothrombin Time 11.6 sec (10.0-12.5)
[2023-05-14 11:05] VITALS: PULSE 73
[2023-05-14 11:31] VITALS: BP 125/86; RESP 17
== END 2023-05-14 11:14 | disposition home or self-care (01) ==
LOC: EC 08:21
DX: R07.89 Other chest pain (principal); R00.1 Bradycardia, unspecified; F12.90 Cannabis use, unspecified, uncomplicated; Z20.822 Contact with and (suspected) exposure to COVID-19
CPT/HCPCS: 36415; 71046; 80053; 83735; 84443; 84484; 84703; 85025; 85610; 85730; 87636; 93005; 99285